=== PATIENT | female | born 1965 | race Caucasian/White ===

== ENCOUNTER 2016-07-21 13:08 | Emergency (ER) | payer MEDICAID ==
[~2016-07-21] VITALS: Ht 154.9 cm; Wt 86.0 kg
[2016-07-21] MEDS ORDERED: TRIA1CAP2 PO (13:26)
[2016-07-21 15:00] VITALS: BP 128/79
[2016-07-21] MEDS ORDERED: TraMADol HCL 50 MG TABLET PO ONE (15:45)
[2016-07-21] MEDS ORDERED: CEPHALEXIN MONOHYDRATE 500 MG CAPSULE PO ONE (15:45)
== END 2016-07-21 16:07 | disposition home or self-care (01) ==
LOC: EMS 13:15
DX: S02.81XA Fracture of other specified skull and facial bones, right side, initial encounter for closed fracture (principal); I10 Essential (primary) hypertension; W18.30XA Fall on same level, unspecified, initial encounter; Y93.89 Activity, other specified; Y92.9 Unspecified place or not applicable; Y99.9 Unspecified external cause status
CPT/HCPCS: 70486; 99284